=== PATIENT | female | born 1960 | race Caucasian/White ===

== ENCOUNTER → 2018-02-09 09:11 | Outpatient (CLI) | payer MEDICARE | END | disposition home or self-care (01) | LOC: D.MRI 09:11 | DX: M54.5 Low back pain (principal) ==

== ENCOUNTER → 2018-03-02 11:45 | Outpatient (CLI) | payer MEDICARE | END | disposition home or self-care (01) | LOC: D.CT 11:45 | DX: I73.9 Peripheral vascular disease, unspecified (principal) ==

== ENCOUNTER 2018-12-21 06:50 | Day surgery (SDC) | payer MEDICARE ==
[2018-12-19 11:52] LABS: HEMOGLOBIN 14.1 g/dL (12-16); MCH 29.9 pg (26.0-34.0); MCHC 32.8 g/dL (31.0-37.0); MCV 91.1 fL (80.0-100.0); MEAN PLATELET VOLUME 9.9 fL (7.4-10.4); RBC 4.72 10x6/uL (4.00-5.40); RDW 13.3 % (11.5-14.5); WBC 4.2 10x3/uL (4.8-10.8)
[~2018-12-21] VITALS: Ht 154.9 cm; Wt 61.2 kg
[~2018-12-21 06:50] MED LIST: ASPIRIN EC81 M1 PO; MIRAPEX0.125 MG PO; NEURONTIN600 MG PO; NEURONTIN800 MG PO; ROXICODONE15 MG PO; WELLBUTRIN SR150 MG PO
[2018-12-21 07:58] VITALS: BP 125/58; Ht 154.9 cm; Wt 61.2 kg
--- NOTE | 2018-12-21 12:09 | NUR ---
1206 RECEIVED PATIENT WITH OPA PRESENT AND PATENT AIRWAY
--- NOTE | 2018-12-21 12:23 | NUR ---
1224 PATIENT AROUSABLE OPA DISCONTINUED
--- NOTE | 2018-12-21 12:54 | NUR ---
PATIENT IS TOLERATING FULL LIQUID DIET WITH NO COMPLAINTS OF NV.
--- NOTE | 2018-12-21 15:27 | NUR ---
PIV REMOVED WITH NO COMPLAINTS.
--- NOTE | 2018-12-21 15:27 | NUR ---
PATIENT HAS A PAIN CONTRACT WITH DR. TOUSSAINT. PATIENT COLEMAN TAKES OXYCODONE [address] MCKEON WROTE A SCRIPT FOR HYDROCODONE. PATIENT CHOSE TO NOT TAKE THE PRESCRIPTION FOR THE HYDROCODONE TO HONOR HER PAIN CONTRACT WITH DR. TOUSSAINT. PRESCRIPTION WAS SHREDDED.
--- NOTE | 2018-12-26 20:19 | OP ---
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 PROCEDURES: Lumbar laminotomy, medial facetectomy and foraminotomy L3-L4 on the right. SURGEON: Elena Dominguez MD DESCRIPTION AND TECHNIQUE: After induction of general endotracheal anesthesia, the patient was rolled prone on a Chas frame. Lumbar spine was prepped and draped in usual sterile fashion. A spinal needle and fluoroscopic x-ray localized the L3-L4 interspace on the right side. After infiltration of 1:100,000 epinephrine and 1% lidocaine, a stab incision was created with a #11 blade. Series of dilators were used to advance a METRx retractor at the L3-L4 interspace on the right side. Flow was confirmed with fluoroscopic x-ray at L3-4 and a microscope and Midas Isael drill were used to perform laminotomy, medial facetectomy, and foraminotomy at L3-L4 on the right. Hypertrophied ligamentum flavum was removed with Cloward rongeurs. Following this, L3 and L4 nerve roots were decompressed well. Meticulous hemostasis was maintained throughout the wound. Wound was irrigated with copious amounts of Ancef irrigant solution. The retractor was removed. The fascia was closed with 2-0 Vicryl suture. The subdermal layer was closed with 3-0 Vicryl suture. Skin was closed with kendall. A sterile dressing was applied to the wound. The patient was awakened in good condition and taken to recovery. All counts were reported as correct. Estimated blood loss was minimal. TRANSINT:[id number] Voice Confirmation ID: [id number] DOCUMENT ID: [id number] ELENA DOMINGUEZ MD at 2019 CC: [id number] DICTATION DATE: 12/21/181725 STITCH WHEELER: 12/22/[address] [facility] 12/21/[address] [id number]
== END 2018-12-21 15:30 | disposition home or self-care (01) ==
LOC: D.OPS 06:50 → D.PAN 09:15 → D.OPS 15:30
PROVIDERS: Anesthesiology; ATTEND Neurological Surgery
DX: M51.26 Other intervertebral disc displacement, lumbar region (principal)